=== PATIENT | male | born 2005 | race African-American/Black ===

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

== ENCOUNTER 2024-04-28 00:15 | Emergency (ER) | payer MEDICAID, OTHER ==
[~2024-04-28] VITALS: Ht 170.2 cm; Wt 84.6 kg
[2024-04-28 00:30] VITALS: BP 130/71; PULSE 64; RESP 16; O2SAT 99
--- NOTE | 2024-04-28 01:35 | ED.PDOC ---
HPI Comments 18-year-old male presents to ER with complaints of laceration to left 3rd finger x1 day. Patient reports that he accidentally dropped a 50 lb dumbbell on his left 3rd finger 10:30 p.m. prior to arrival to ER and sustained laceration to the left 3rd finger at that time. He reports 9/10 pain localized to left 3rd finger without radiation. Denies use of medications for current symptoms. States he is not up-to-date on his tetanus shot. Denies numbness/tingling or any further symptoms/complaints Chief Complaint: Laceration Time Seen by MD: 00:30 Primary Care Provider: UNKNOWN Reviewed Notes: Nurses Notes, Medications, Allergies Allergies: Coded Allergies: NO KNOWN ALLERGIES (Unverified , 07/22/22) Home Meds Active Scripts Ibuprofen (Ibuprofen) 800 Mg Tab, 1 TAB PO TID PRN, #30 TAB 0 Refills Prov:CHARLA COLE 04/28/24 Clindamycin Hcl (Clindamycin Hcl) 300 Mg Cap, 1 CAP PO TID for 7 Days, #21 CAP 0 Refills Prov:CHARLA COLE 04/28/24 Information Source: Patient Mode of Arrival: Ambulatory Complexity: Simple Laceration Length (cm): 2 Past Medical History PAST MEDICAL HISTORY: Denies Surgical History: Denies all surgeries Family History Family History: Unknown Social History Lives In: Home Constitutional: denies: chills, diaphoresis, fatigue, fever, malaise, sweats, weakness, others EENTM: denies: blurred vision, double vision, ear bleeding, ear discharge, ear drainage, ear pain, ear ringing, eye pain, eye redness, hearing loss, mouth pain, mouth swelling, nasal discharge, nose bleeding, nose congestion, nose pain, photophobia, tearing, throat pain, throat swelling, voice changes, others Respiratory: denies: cough, hemoptysis, orthopnea, SOB at rest, shortness of breath, SOB with excertion, stridor, wheezing, others Cardiovascular: denies: chest pain, dizzy spells, diaphoresis, Dyspnea on exertion, edema, irregular heart beat, left arm pain, lightheadedness, palpitations, PND, syncope, others Gastrointestinal: denies: abdomen distended, abdominal pain, blood streaked bowels, constipated, diarrhea, dysphagia, difficulty swallowing, hematemesis, melena, nausea, poor appetite, poor fluid intake, rectal bleeding, rectal pain, vomiting, others Genitourinary: denies: burning, dysuria, flank pain, frequency, hematuria, incontinence, penile discharge, penile sore, pain, testicle pain, testicle swelling, urgency, others Neurological: denies: dizziness, fainting, headache, left sided numbness, left sided weakness, numbness, paresthesia, pre-existing deficit, right sided numbness, right sided weakness, seizure, speech problems, tingling, tremors, weakness, others Musculoskeletal: denies: back pain, gout, joint pain, joint swelling, muscle pain, muscle stiffness, neck pain, others Integumetry: reports: others (As stated in HPI) Allergic/Immunocompromised: denies: Difficulty Healing, Frequent Infections, Hives, Itching, others Hematologic/Lymphatic: denies: anemia, blood clots, easy bleeding, easy bruising, swollen glands, others Endocrine: denies: excessive hunger, excessive sweating, excessive thirst, excessive urination, flushing, intolerance to cold, intolerance to heat, unexplained weight gain, unexplained weight loss, others Psychiatric: denies: anxiety, bipolar disorder, depression, hopeless, panic disorder, schizophrenia, sleepless, suicidal, others Physical Exam General Appearance: No Apparent Distress HEENT: PERRL/EOMI Neck: Full Range of Motion, Non-Tender, Normal Respiratory: Chest Non-Tender, Lungs Clear, No Accessory Muscle Use, No Respiratory Distress, Normal Breath Sounds Cardiovascular: No Murmur, No Gallop, Regular Rate/Rhythm Breast Exam: Deferred Gastrointestinal: NOT DONE Genitalia: Deferred Pelvic: Deferred Rectal: Deferred Extremities: Normal capillary refill, Normal range of motion Musculoskeletal : Extremity Location: Finger 3 (2 lacerations <2 cm in length noted to palmar surface/distal tuft of left 3rd finger and parital nail avulsion with 1- 1cm nailbed laceration noted to left 3rd finger. Slight TTP/swelling/erythema localized to wound edges. No further skin changes noted. Patient able to fully move all fingers of left hand. Pulses intact) Neurologic: Alert, No Motor Deficits, Normal Affect, Normal Mood, No Sensory De ficits Cerebellar Function: Normal Reflexes: Normal Skin: Dry, Warm Peripheral Pulses: 2+ Radial (R), 2+ Radial (L), 2+ Brachial (R), 2+ Brachial (L) Lymphatic: No Adenopathy Was a procedure done? Was a procedure done?: Yes Sedation Sedation?: No Laceration Repair : Location Left 3rd finger Length 2 lacerations <2 cm in length noted to palmar surface/distal tuft of left 3rd finger 1- 1 cm nail bed laceration noted Laceration Repair Prep: Saline, Betadine, by Irrigation (heavily irriagated without any signs of foreign body) Laceration Repair Wound Comple: epidermis/dermis repair Laceration Repair: Number of sutures, Size (5-0 Ethilon and 5-0 Monocryl), Simple (Total of 5 sutures placed without complication) Informed consent obtained: Yes Risks, benefits, and alternati: Yes Nail Removal Nail Removal Location: 3rd Finger nail (Left) Nail Removal preparation: Saline, Betadine, by Irrigation Nail Removal Anesthetic: Lidocaine (1%) Wound Complexity: Full (Left 3rd fingernail fully removed using iris scissors and a hemostat -patient tolerated well without any complication) Informed Consent: Yes Risks/Benefits/alt. described: Yes Differential diagnosis Generic Laceration: Retained Foriegn Body, Neurovascular Injury, Tendon Injury X-Ray, Labs, Meds, VS Vital Signs Date Time Temp Pulse Resp B/P (MAP) Pulse Ox O2 Delivery O2 Flow Rate FiO2 04/28/24 00:30 98.5 64 16 130/71 (90) 99 Current Medications Medications (Trade) Dose Ordered Sig/Prashant Route Start Time Stop Time Status Last Admin Cefazolin Sodium 50 ml @ 100 mls/hr ONCE ONCE IV 04/28/24 02:00 04/28/24 02:29 DC 04/28/24 03:06 Cefazolin Sodium 50 ml @ 100 mls/hr ONCE ONCE IV 04/28/24 02:00 04/28/24 02:29 DC 04/28/24 03:06 Lidocaine HCl (Xylocaine 1%) ONCE ONCE ID 04/28/24 02:00 04/28/24 02:01 DC 04/28/24 02:07 PATIENT: MARILYNN FORDCCT: [id number]: [id number] : 2005 LOC: ER ROOM / BED: / AGE / SEX: 18 / M ADM STATUS: REG ER SERVICE ORDERING PHYSICIAN: CHARLA COLE PROCEDURE(s): LFIN3 - L 3RD FINGER XRAY REASON: LEFT 3RD FINGER PAIN/LACERATION, R/O FRACTURE ORDER NUMBER(s): [id number], ACCESSION NUMBER(s): [id number] CLINICAL INDICATION: LEFT 3RD FINGER PAIN/LACERATION, R/O FRACTURE TECHNIQUE: 3 radiographic views of the left 3rd finger were obtained. Comparison: None FINDINGS/IMPRESSION: There is comminuted fracture of the distal tuft of the 3rd distal phalanx with associated soft tissue swelling and laceration. ATED BY: JORDAN BROWN MD DICTATED DATE/TIME: 04/28/24244 SIGNED BY: JORDAN BROWN MD SIGNED DATE/TIME: 04/28/24244 CC: Left 3rd finger x-ray reviewed Hep-Lock IV ordered Ancef 2 mg IV ordered Tdap 0.5 mL IM ordered Finger splint applied Patient neurovascularly intact and reported improvement in symptoms prior to discharge Wound care/cleaning discussed and advised Advised on rest/no strenuous activity and elevation Advised to follow up in two days for wound check Advised to follow up in 10-14 days for removal of sutures Patient provided copy of x-ray imaging report Patient provided information with regards to local orthopedics/hand specialists and advised to follow up in 1-2 days Advised to follow up with PCP in 1-2 days Patient verbalized understanding and agreeable with current plan of Advised to return to ER immediately if symptoms worsen Images Reviewed?: Images reviewed and evaluated by me Time of 1ST Reevaluation: 01:32 Reevaluation 1ST: N/A Time of 2ND Reevaluation: 02:44 Reevaluation 2ND: Improved Patient Education/Counseling: Diagnosis, Treatment, Prognosis, Need For Follow Up Family Education/Counseling: No Family Present Departure 1 Departure Time of Disposition: 02:50 Impression: Primary Impression: Laceration of finger, left Qualified Codes: S61.313A - Laceration without foreign body of left middle finger with damage to nail, initial encounter Additional Impression: Fracture of finger of left hand Qualified Codes: S62.663B - Nondisplaced fracture of distal phalanx of left middle finger, initial encounter for open fracture Disposition: 01 HOME / SELF CARE / HOMELESS Condition: Stable e-Prescriptions Ibuprofen (Ibuprofen) 800 Mg Tab 1 TAB PO TID PRN, #30 TAB 0 Refills Prov: CHARLA COLE 04/28/24 Clindamycin Hcl (Clindamycin Hcl) 300 Mg Cap 1 CAP PO TID for 7 Days, #21 CAP 0 Refills Prov: CHALRA COLE 04/28/24 Discharged With: Self Critical Care Note Critical Care Time?: No Stability Stability form required: No Heart Score Heart Score: Heart Score Response (Comments) Value History N/A 0 EKG N/A 0 Age N/A 0 Risk Factors N/A 0 Troponin N/A 0 Total 0 CHARLA OCLE Apr 28, 2024 01:35
[2024-04-28] MEDS: LIDOCAINE 1% HCL (LOCAL ANESTH.) INJ 20ML MDV ID ONE (02:07)
--- NOTE | 2024-04-28 02:48 | DVH ---
CLINICAL INDICATION: LEFT 3RD FINGER PAIN/LACERATION, R/O FRACTURE TECHNIQUE: 3 radiographic views of the left 3rd finger were obtained. Comparison: None FINDINGS/IMPRESSION: There is comminuted fracture of the distal tuft of the 3rd distal phalanx with associated soft tissue swelling and laceration.
[2024-04-28] MEDS ORDERED: CLIN1CAP70 PO (02:51)
[2024-04-28] MEDS ORDERED: IBUP-1456 PO (02:51)
[2024-04-28] MEDS: ceFAZolin 1GM/50ML 50 ML IV ONE ×2 (03:06)
== END 2024-04-28 03:41 | disposition home or self-care (01) ==
LOC: ER 00:15
DX: S61.313A Laceration without foreign body of left middle finger with damage to nail, initial encounter (principal); S62.663A Nondisplaced fracture of distal phalanx of left middle finger, initial encounter for closed fracture; X58.XXXA Exposure to other specified factors, initial encounter; Y93.89 Activity, other specified; Y92.89 Other specified places as the place of occurrence of the external cause; Y99.8 Other external cause status
CPT/HCPCS: 11730; 12001; 73140; 96365; 99284; J0690; J2003; 96368